=== PATIENT | female | born 1995 | race Caucasian/White ===

== ENCOUNTER 2017-10-05 08:46 | Emergency (ER) | payer OTHER ==
[~2017-10-05] VITALS: Wt 64.1 kg
[2017-10-05] MEDS ORDERED: CETI10CA PO (09:25)
[2017-10-05] MEDS ORDERED: BENZ100C70 PO (09:25)
[2017-10-05] MEDS ORDERED: IBUP-1542 PO (09:25)
--- NOTE | 2017-10-05 09:29 | ERD ---
ER Documentation Chief Complaint Chief Complaint COUGH, CONGESTION, BODYACHES HPI 22-year-old female otherwise healthy comes in with cough, congestion, body aches , and diarrhea for the past 2 days. Patient has had a dry cough, sore throat, frontal headache, she states she had one nosebleed. Contrary to the triage nurses note the patient has not had any vomiting, she reports 3 episodes of loose stools each day that are nonbloody non-mucousy. She denies any history of travel, abdominal pain, chest pain or shortness of breath. ROS All systems reviewed and are negative except as per history of present illness. Medications Home Meds Active Scripts Cetirizine Hcl* (Zyrtec*) 10 Mg Capsule, 10 MG PO DAILY, #10 TAB.CHEW Prov:JUANITA CARBONE PA-C 10/05/17 Ibuprofen* (Motrin*) 600 Mg Tab, 600 MG PO Q6, #30 TAB Prov:JUANITA CARBONE PA-C 10/05/17 Benzonatate* (Tessalon Perle*) 100 Mg Capsule, 100 MG PO Q8H Y for COUGH, #30 CAP Prov:JUANITA CARBONE PA-C 10/05/17 Allergies Allergies: Coded Allergies: No Known Allergy (Unverified , 10/05/17) PMhx/Soc Medical and Surgical Hx: pt denies Medical Hx, pt denies Surgical Hx Hx Alcohol Use: No Hx Substance Use: No Hx Tobacco Use: No Physical Exam Vitals Vital Signs Date Time Temp Pulse Resp B/P Pulse Ox O2 Delivery O2 Flow Rate FiO2 10/05/17 08:49 98.1 99 18 116/71 99 Physical Exam Const: Well-developed, well-nourished, in no acute distress. HEENT: Atraumatic. Normal Conjunctiva. TM's normal bilaterally, clear oropharynx. Supple. Full range of motion. No meningismus. Resp: Clear to auscultation bilaterally Cardio: Regular rate and rhythm, no murmurs Abd: Soft, non tender, non distended. Normal bowel sounds. No McBurney' s point tenderness. No guarding or rigidity. No peritoneal signs. Skin: No petechia or rashes Back: No midline or flank tenderness Ext: No cyanosis, or edema Neur: Awake and alert Procedures/MDM The patient is a 22-year-old female who comes in with a viral syndrome. The patient's breath sounds are clear, she is well-appearing nontoxic without signs of hypoxia or respiratory distress. She has had associated symptoms of cough, body aches and diarrhea that are most consistent with a viral syndrome. The patient has a differential diagnosis of a viral upper respiratory infection, bacterial upper respiratory infection, bronchitis, pneumonia, pharyngitis, laryngitis, epiglottitis, croup, pneumonia. Patient has a normal pulmonary examination, clear breath sounds, normal pulse oximetry, with no corrective measures needed at this time. Fluids, rest, antipyretics were encouraged. Departure Diagnosis: Primary Impression: Viral syndrome Condition: Good Patient Instructions: Viral Syndrome (Adult) JUANITA CARBONE PA-C Oct 05, 2017 09:29
== END 2017-10-05 10:00 | disposition home or self-care (01) ==
LOC: FTE 08:46
DX: B34.9 Viral infection, unspecified (principal)
CPT/HCPCS: 99283

== ENCOUNTER 2018-12-09 05:13 | Emergency (ER) | payer OTHER ==
[~2018-12-09] VITALS: Ht 149.9 cm; Wt 65.0 kg
[~2018-12-09 05:13] MED LIST: BENZ-6 PO; CETI10CA PO; IBUP-1542 PO
[2018-12-09 05:15] VITALS: Ht 149.9 cm; Wt 65.0 kg
[2018-12-09] MEDS ORDERED: LIDOCAINE/MYLANTA 40 ML BTL PO STA (06:20)
[2018-12-09] MEDS ORDERED: UDMYL PO (07:37)
[2018-12-09] MEDS ORDERED: ONDA4TAB14 PO (07:37)
--- NOTE | 2018-12-09 07:38 | ERD ---
ER Documentation Chief Complaint Chief Complaint epigastric pain x 1 week. also c/o diarrhea ROS All systems reviewed and are negative except as per history of present illness. Medications Home Meds Active Scripts Ondansetron (Ondansetron Odt) 4 Mg Tab.rapdis, 4 MG PO Q6H PRN for NAUSEA AND/OR VOMITING, #10 TAB Prov:NORMAN SOLITARIO DO 12/09/18 Magaldrate/Simethicone* (Mag-Al Plus Suspension*) 30 Ml Oral.susp, 30 ML PO Q6H PRN for GASTROINTESTINAL UPSET, #1 BOTTLE Prov:NORMAN SOLITARIO DO 12/09/18 Cetirizine Hcl* (Zyrtec*) 10 Mg Capsule, 10 MG PO DAILY, #10 TAB.CHEW Prov:JUANITA CARBONE PA-C 10/05/17 Ibuprofen* (Motrin*) 600 Mg Tab, 600 MG PO Q6, #30 TAB Prov:JUANITA CARBONE PA-C 10/05/17 Benzonatate* (Tessalon Perle*) 100 Mg Capsule, 100 MG PO Q8H PRN for COUGH, #30 CAP Prov:JUANITA CARBONE PA-C 10/05/17 Allergies Allergies: Coded Allergies: No Known Allergy (Unverified , 10/05/17) PMhx/Soc Medical and Surgical Hx: pt denies Medical Hx, pt denies Surgical Hx Hx Alcohol Use: No Hx Substance Use: No Hx Tobacco Use: No Physical Exam Vitals Vital Signs Date Temp Pulse Resp B/P (MAP) Pulse Ox O2 O2 Flow FiO2 Time Delivery Rate 12/09/18 97.4 94 18 138/63 98 05:15 (88) Physical Exam Const: No acute distress Head: Atraumatic Eyes: Normal Conjunctiva ENT: Normal External Ears, Nose and Mouth. Neck: Full range of motion. No meningismus. Resp: Clear to auscultation bilaterally Cardio: Regular rate and rhythm, no murmurs Abd: Soft, non tender, non distended. Normal bowel sounds Skin: No petechiae or rashes Back: No midline or flank tenderness Ext: No cyanosis, or edema Neur: Awake and alert Psych: Normal Mood and Affect Result Diagram: 12/09/18 0632 12/09/18 0632 Results 24 hrs Laboratory Tests Test 12/09/18 06:32 12/09/18 06:35 12/09/18 06:44 White Blood Count 8.6 10^3/ul Red Blood Count 4.39 10^6/ul Hemoglobin 13.3 g/dl Hematocrit 40.7 % Mean Corpuscular Volume 92.7 fl Mean Corpuscular Hemoglobin 30.3 pg Mean Corpuscular 32.7 g/dl Hemoglobin Concent Red Cell Distribution Width 12.6 % Platelet Count 252 10^3/UL Mean Platelet Volume 11.1 fl Immature Granulocytes % 0.200 % Neutrophils % 63.8 % Lymphocytes % 29.7 % Monocytes % 5.7 % Eosinophils % 0.3 % Basophils % 0.3 % Nucleated Red Blood Cells % 0.0 /100WBC Immature Granulocytes # 0.020 10^3/ul Neutrophils # 5.5 10^3/ul Lymphocytes # 2.6 10^3/ul Monocytes # 0.5 10^3/ul Eosinophils # 0.0 10^3/ul Basophils # 0.0 10^3/ul Nucleated Red Blood Cells # 0.0 10^3/ul Sodium Level 143 mmol/L Potassium Level 4.2 mmol/L Chloride Level 105 mmol/L Carbon Dioxide Level 30 mmol/L Anion Gap 8 Blood Urea Nitrogen 15 mg/dl Creatinine 0.59 mg/dl Est Glomerular Filtrat > 60 mL/min Rate mL/min Glucose Level 96 mg/dl Calcium Level 9.4 mg/dl Total Bilirubin 0.1 mg/dl Direct Bilirubin 0.00 mg/dl Indirect Bilirubin 0.1 mg/dl Aspartate Amino 19 IU/L Transf (AST/SGOT) Alanine 14 IU/L Aminotransferase (ALT/SGPT) Alkaline Phosphatase 83 IU/L Total Protein 7.9 g/dl Albumin 4.3 g/dl Globulin 3.60 g/dl Albumin/Globulin Ratio 1.19 Lipase 592 U/L Urine Color YELLOW Urine Clarity CLEAR Urine pH 6.0 Urine Specific [place] 1.026 Urine Ketones NEGATIVE mg/dL Urine Nitrite NEGATIVE mg/dL Urine Bilirubin NEGATIVE mg/dL Urine Urobilinogen NEGATIVE mg/dL Urine Leukocyte Esterase NEGATIVE Ishmael/ul Urine Microscopic RBC 1 /HPF Urine Microscopic WBC 1 /HPF Urine Squamous Epithelial Cells FEW /HPF Urine Bacteria FEW /HPF Urine Mucus FEW /HPF Urine Hemoglobin 1+ mg/dL Urine Glucose NEGATIVE mg/dL Urine Total Protein NEGATIVE mg/dl POC Beta HCG, Qualitative NEGATIVE Current Medications Medications Dose Sig/Yazan Start Time Status Last (Trade) Ordered Route PRN Stop Time Admin Dose Reason Admin 40 ml ONCE STAT 12/09/18 DC 12/09/18 Miscellaneous PO 06:20 06:28 Medication 12/09/18 06:21 (Gi Cocktail (2)) Departure Diagnosis: Primary Impression: Abdominal pain Abdominal location: epigastric Qualified Codes: R10.13 - Epigastric pain Condition: Fair Patient Instructions: Abdominal Pain, Gastritis (Adult) Referrals: [facility] YOU HAVE RECEIVED A MEDICAL SCREENING EXAM AND THE RESULTS INDICATE THAT YOU DO NOT HAVE A CONDITION THAT REQUIRES URGENT TREATMENT IN THE EMERGENCY DEPARTMENT. FURTHER EVALUATION AND TREATMENT OF YOUR CONDITION CAN WAIT UNTIL YOU ARE SEEN IN YOUR DOCTORS OFFICE WITHIN THE NEXT 1-2 DAYS. IT IS YOUR RESPONSIBILITY TO MA KE AN APPOINTMENT FOR FOLOW-UP CARE. IF YOU HAVE A PRIMARY DOCTOR --you should call your primary doctor and schedule an appointment IF YOU DO NOT HAVE A PRIMARY DOCTOR YOU CAN CALL OUR PHYSICIAN REFERRAL HOTLINE AT IF YOU CAN NOT AFFORD TO SEE A PHYSICIAN YOU CAN CHOSE FROM THE FOLLOWING [facility] CLINICS [facility] [address] [facility]. [facility] [address] [facility] [address] [facility] [facility] [address] [facility]. [facility] [address] [facility]. [facility]. [address] Additional Instructions: Call your primary care doctor TOMORROW for an appointment during the next 1-2 days.See the doctor sooner or return here if your condition worsens before your appointment time. May need referral to sleep tech NORMAN SOLITARIO DO Dec 09, 2018 07:38
== END 2018-12-09 07:47 | disposition home or self-care (01) ==
LOC: FTE 05:13
DX: R10.13 Epigastric pain (principal)
CPT/HCPCS: 36415; 80053; 81001; 81025; 83690; 85025; Z7502; Z7610; 99283

== ENCOUNTER 2018-12-21 06:59 | Emergency (ER) | payer MEDICAID, OTHER ==
[~2018-12-21] VITALS: Ht 152.4 cm; Wt 65.2 kg
[~2018-12-21 06:59] MED LIST changes: +ONDA4TAB14 PO; +UDMYL PO
[2018-12-21 07:02] VITALS: BP 117/54; PULSE 94; RESP 16; Ht 152.4 cm; Wt 65.2 kg
[2018-12-21] MEDS ORDERED: IBUP-1542 PO (08:16)
[2018-12-21] MEDS ORDERED: ACET-141 PO (08:16)
[2018-12-21] MEDS ORDERED: METH750T93 PO (08:18)
--- NOTE | 2018-12-21 08:21 | ERD ---
ER Documentation Chief Complaint Chief Complaint right arm pain since last night HPI 23-year-old female presents for right arm pain times 1 day. 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 She is been putting warm compresses on her arm however she states that the pain continues. Pain is from the upper arm to the forearm. She denies significant past medical history. ROS All systems reviewed and are negative except as per history of present illness. Medications Home Meds Active Scripts Methocarbamol* (Robaxin*) 750 Mg Tablet, 750 MG PO TID PRN for MUSCLE SPASMS, #30 TAB Prov:ALTAFNORMAN 12/21/18 Acetaminophen* (Acetaminophen*) 500 MG Extra Strength Tablet, 500 MG PO Q4H PRN for PAIN AND OR ELEVATED TEMP, #30 TAB Prov:SOLITARIONORMAN 12/21/18 Ibuprofen* (Motrin*) 600 Mg Tab, 600 MG PO Q6H PRN for PAIN AND OR ELEVATED TEMP, #30 TAB Prov:ALTAFNORMAN 12/21/18 Ondansetron (Ondansetron Odt) 4 Mg Tab.rapdis, 4 MG PO Q6H PRN for NAUSEA AND/OR VOMITING, #10 TAB Prov:ALTAFNORMAN 12/09/18 Magaldrate/Simethicone* (Mag-Al Plus Suspension*) 30 Ml Oral.susp, 30 ML PO Q6H PRN for GASTROINTESTINAL UPSET, #1 BOTTLE Prov:SOLITARIONORMAN 12/09/18 Cetirizine Hcl* (Zyrtec*) 10 Mg Capsule, 10 MG PO DAILY, #10 TAB.CHEW Prov:JUANITA CARBONE PA-C 10/05/17 Ibuprofen* (Motrin*) 600 Mg Tab, 600 MG PO Q6, #30 TAB Prov:JUANITA CARBONE PA-C 10/05/17 Benzonatate* (Tessalon Perle*) 100 Mg Capsule, 100 MG PO Q8H PRN for COUGH, #30 CAP Prov:JUANITA CARBONE PA-C 10/05/17 Allergies Allergies: Coded Allergies: No Known Allergy (Unverified , 12/21/18) PMhx/Soc Medical and Surgical Hx: pt denies Medical Hx, pt denies Surgical Hx Hx Alcohol Use: No Hx Substance Use: No Hx Tobacco Use: No Physical Exam Vitals Vital Signs Date Temp Pulse Resp B/P (MAP) Pulse Ox O2 O2 Flow FiO2 Time Delivery Rate 12/21/18 98.1 94 16 117/54 99 07:02 (75) Physical Exam Const: No acute distress Resp: Clear to auscultation bilaterally Cardio: Regular rate and rhythm, no murmurs, bilateral radial pulses intact, right hand cap refills less than 2 seconds Abd: Soft, non tender, non distended. Normal bowel sounds Skin: No petechiae or rashes Back: No midline or flank tenderness Ext: Right arm diffuse tenderness to palpation, there is decreased range of motion over the right arm. Neur: Awake and alert, bilateral upper extremity sensation intact Psych: Normal Mood and Affect Procedures/MDM Medical Decision Making: Differential diagnosis includes but not limited to muscle strain, ligamentous sprain, fracture, dislocation Patient appeared well on physical exam. No obvious deformities or history of trauma to suggest fracture or dislocation Patient likely has an overuse injury, muscle strain Prescription(s): Patient given prescription for Motrin, Tylenol, Robaxin. Advised to use warm compresses as needed for pain. Advised that she will need to rest in order for the pain to improve. Patient advised to follow up with PCP in 1-2 days. Patient advised to return to ED for new or worsening symptoms. Patient stable on discharge from the ED. Disclaimer: Inadvertent spelling and grammatical errors are likely due to EHR/dictation software use and do not reflect on the overall quality of patient care. Also, please note that the electronic time recorded on this note does not necessarily reflect the actual time of the patient encounter. Departure Diagnosis: Primary Impression: Pain of right arm Condition: Fair Patient Instructions: Muscle Strain, Extremity Referrals: [facility] YOU HAVE RECEIVED A MEDICAL SCREENING EXAM AND THE RESULTS INDICATE THAT YOU DO NOT HAVE A CONDITION THAT REQUIRES URGENT TREATMENT IN THE EMERGENCY DEPARTMENT. FURTHER EVALUATION AND TREATMENT OF YOUR CONDITION CAN WAIT UNTIL YOU ARE SEEN IN YOUR DOCTORS OFFICE WITHIN THE NEXT 1-2 DAYS. IT IS YOUR RESPONSIBILITY TO MAKE AN APPOINTMENT FOR FOLOW-UP CARE. IF YOU HAVE A PRIMARY DOCTOR --you should call your primary doctor and schedule an appointment IF YOU DO NOT HAVE A PRIMARY DOCTOR YOU CAN CALL OUR PHYSICIAN REFERRAL HOTLINE AT IF YOU CAN NOT AFFORD TO SEE A PHYSICIAN YOU CAN CHOSE FROM THE FOLLOWING COMMUNITY CLINICS [facility] [address] [facility] [address] [facility] [address] [facility] [address] [facility]. [facility] [address] [facility]. [facility] [address] Additional Instructions: Call your primary care doctor TOMORROW for an appointment during the next 1-2 days.See the doctor sooner or return here if your condition worsens before your appointment time. NORMAN SOLITARIO DO Dec 21, 2018 08:21
== END 2018-12-21 08:25 | disposition home or self-care (01) ==
LOC: FTE 06:59
DX: M79.601 Pain in right arm (principal)
CPT/HCPCS: 99283

== ENCOUNTER 2019-02-26 13:57 | Emergency (ER) | payer SELFPAY ==
[~2019-02-26] VITALS: Wt 65.4 kg
[~2019-02-26 13:57] MED LIST changes: +ACET-141 PO; +METH750T93 PO
[2019-02-26 14:04] VITALS: BP 118/64; PULSE 80; RESP 16
[2019-02-26] MEDS ORDERED: IBUP-1542 PO (16:10)
--- NOTE | 2019-02-26 16:15 | ERD ---
ER Documentation Chief Complaint Chief Complaint LMP 02/17; VB w clots started 02/25. strong cramps. denies dysuria. HPI 23-year-old female presents with vaginal bleeding which is prolonged after last menstrual period. She is using light pads only 1 or 2/day currently. She has mild suprapubic cramping. Denies fevers, vomiting, , dysuria or vaginal bleeding. ROS All systems reviewed and are negative except as per history of present illness. Medications Home Meds Active Scripts Ibuprofen* (Motrin*) 600 Mg Tab, 600 MG PO Q6, #20 TAB Prov:MIGDALIA ANN MD 02/26/19 Methocarbamol* (Robaxin*) 750 Mg Tablet, 750 MG PO TID PRN for MUSCLE SPASMS, #30 TAB Prov:NORMAN SOLITARIO DO 12/21/18 Acetaminophen* (Acetaminophen*) 500 MG Extra Strength Tablet, 500 MG PO Q4H PRN for PAIN AND OR ELEVATED TEMP, #30 TAB Prov:NORMAN SOLITARIO DO 12/21/18 Ibuprofen* (Motrin*) 600 Mg Tab, 600 MG PO Q6H PRN for PAIN AND OR ELEVATED TEMP, #30 TAB Prov:NORMAN SOLITARIO DO 12/21/18 Ondansetron (Ondansetron Odt) 4 Mg Tab.rapdis, 4 MG PO Q6H PRN for NAUSEA AND/OR VOMITING, #10 TAB Prov:NORMAN SOLITARIO DO 12/09/18 Magaldrate/Simethicone* (Mag-Al Plus Suspension*) 30 Ml Oral.susp, 30 ML PO Q6H PRN for GASTROINTESTINAL UPSET, #1 BOTTLE Prov:NORMAN SOLITARIO DO 12/09/18 Cetirizine Hcl* (Zyrtec*) 10 Mg Capsule, 10 MG PO DAILY, #10 TAB.CHEW Prov:JAUNITA CARBONE PA-C 10/05/17 Ibuprofen* (Motrin*) 600 Mg Tab, 600 MG PO Q6, #30 TAB Prov:JUANITA CARBONE PA-C 10/05/17 Benzonatate* (Tessalon Perle*) 100 Mg Capsule, 100 MG PO Q8H PRN for COUGH, #30 CAP Prov:JUANITA CARBONE PA-C 10/05/17 Allergies Allergies: Coded Allergies: No Known Allergy (Unverified , 12/21/18) PMhx/Soc Hx Alcohol Use: No Hx Substance Use: No Hx Tobacco Use: No FmHx Family History: No diabetes, No coronary disease, No other Physical Exam Vitals Vital Signs Date Temp Pulse Resp B/P (MAP) Pulse Ox O2 O2 Flow FiO2 Time Delivery Rate 02/26/19 98.6 80 16 118/64 99 14:04 (82) Physical Exam Const: No acute distress Head: Atraumatic Eyes: Normal Conjunctiva ENT: Normal External Ears, Nose and Mouth. Neck: Full range of motion. No meningismus. Resp: Clear to auscultation bilaterally Cardio: Regular rate and rhythm, no murmurs Abd: Soft, minimal suprapubic tenderness. No change McBurney's point no Orozco sign., non distended. Normal bowel sounds Skin: No petechiae or rashes Back: No midline or flank tenderness Ext: No cyanosis, or edema Neur: Awake and alert Psych: Normal Mood and Affect Result Diagram: 02/26/19 1422 Results 24 hrs Laboratory Tests Test 02/26/19 14:22 02/26/19 14:30 White Blood Count 11.7 10^3/ul Red Blood Count 4.03 10^6/ul Hemoglobin 12.4 g/dl Hematocrit 37.4 % Mean Corpuscular Volume 92.8 fl Mean Corpuscular Hemoglobin 30.8 pg Mean Corpuscular Hemoglobin Concent 33.2 g/dl Red Cell Distribution Width 12.5 % Platelet Count 255 10^3/UL Mean Platelet Volume 11.1 fl Immature Granulocytes % 0.300 % Neutrophils % 64.6 % Lymphocytes % 28.0 % Monocytes % 6.4 % Eosinophils % 0.5 % Basophils % 0.2 % Nucleated Red Blood Cells % 0.0 /100WBC Immature Granulocytes # 0.030 10^3/ul Neutrophils # 7.6 10^3/ul Lymphocytes # 3.3 10^3/ul Monocytes # 0.8 10^3/ul Eosinophils # 0.1 10^3/ul Basophils # 0.0 10^3/ul Nucleated Red Blood Cells # 0.0 10^3/ul Urine Color YELLOW Urine Clarity SLIGHTLY CLOUDY Urine pH 5.0 Urine Specific [place] 1.031 Urine Ketones NEGATIVE mg/dL Urine Nitrite NEGATIVE mg/dL Urine Bilirubin NEGATIVE mg/dL Urine Urobilinogen 1+ mg/dL Urine Leukocyte Esterase NEGATIVE Ishma[place]/ul Urine Microscopic RBC 21 /HPF Urine Microscopic WBC 2 /HPF Urine Squamous Epithelial Cells FEW /HPF Urine Mucus MANY /HPF Urine Hemoglobin 3+ mg/dL Urine Glucose NEGATIVE mg/dL Urine Total Protein NEGATIVE mg/dl POC Beta HCG, Qualitative NEGATIVE Procedures/MDM Pelvic ultrasound shows a questionable 9 mm polyp within the endometrium. MRI or hysteroscopy recommended. No evidence of anemia on CBC. Minimal leukocytosis. Patient was stable and amatory throughout the ER course. Patient presents with vaginal bleeding which is been prolonged since her last menstrual period. She has less than 2 pads per day. She is well-appearing without signs of anemia, acute abdomen, sepsis, additional concerning signs or symptoms. She will discharged home with ibuprofen recommended REGISTERED RADIOGRAPHER follow-up and return precautions for fevers, vomiting, worsening pain, bleeding, new worsening symptoms. The patient was stable with no new complaints during the ER course. Clinically, there is no current evidence to suggest meningitis, sepsis, acute abdomen, pneumonia, stroke, acute coronary syndrome, pulmonary embolism, aortic dissection or any other emergent condition appearing to require further evaluation or hospitalization. Patient counseled regarding my diagnostic impression and care plan. Prior to discharge all questions answered. Pt agrees with treatment plan and understands strict return precautions. Pt is instructed to follow up with primary care provider within 24-48 hours. Precautionary instructions provided including instructions to return to the ER if not improving or for any worsening or changing symptoms or concerns. Disclaimer: Inadvertent spelling and grammatical errors are likely due to EHR/dictation software use and do not reflect on the overall quality of patient care. Also, please note that the electronic time recorded on this note does not necessarily reflect the actual time of the patient encounter. Departure Diagnosis: Primary Impression: Vaginal bleeding Condition: Stable Patient Instructions: Dysfunctional Uterine Bleeding Referrals: NO PRIMARY,CARE PHYSICIAN (PCP) REGISTERED RADIOGRAPHER [place] [id number] [address] OFFICE FAX NOEMI NETTLES [address] [place] [address] [address] SHAH [place] [address] [place], [place] [id number] [facility] [address], [address], [place] [address] [address] MARTINES, [facility] [address] [facility] [place] [address] [facility] [address] [place] [address] [address] [facility] [address] - [address] JAY, [place] [place] [address] [address] BRITO, [place] [address] [facility]. [address], [place] [address] DR RAYO, [facility] [address] [place] [address] Additional Instructions: Bleeding may be from possible polyp noted on ultrasound. The REGISTERED RADIOGRAPHER for further evaluation and treatment. Recheck otherwise for fevers, worsening pain, new worsening symptoms. MIGDALIA ANN MD February 26, 2019 16:15
== END 2019-02-26 17:05 | disposition home or self-care (01) ==
LOC: FTE 13:57
DX: N93.9 Abnormal uterine and vaginal bleeding, unspecified (principal)
CPT/HCPCS: 36415; 76830; 76856; 81001; 81025; 85025